=== PATIENT | female | born 1990 | race African-American/Black ===

== ENCOUNTER 2017-07-20 02:03 | Inpatient (IN) ==
[2017-07-20] MEDS: LACTATED RINGERS 1,000 ML IV SCH ×4 (03:20→23:43)
[2017-07-20] MEDS ORDERED: CITRIC ACID/SODIUM CITRATE 30 ML UDCUP PO ONE (04:00)
[2017-07-20] MEDS ORDERED: cefOXitin 2,000 MG in SYRINGE 1 EACH IV ONE (04:00)
[2017-07-20] MEDS ORDERED: FAMOTIDINE 20 MG/2 ML VIAL IV ONE (04:00)
[2017-07-20 04:28] LABS: Basophils % 0.2 % (0.0-0.8); Eosinophils # 0.1 10*3/uL (0.0-0.87); Eosinophils % 0.5 % (0.00-10.9); Hematocrit 27.8 VOL% (35.7-47.0); Hemoglobin 8.3 GM/DL (12.0-16.0); Immature Granulocytes % 0.7 %; Immature Granulocytes Absolute 0.07 #; Lymphocytes % 28.6 % (21.3-54.2); Mean Corpuscular HGB Conc 29.9 GM/DL (32-36); Mean Corpuscular Hemoglobin 23 PG (27-34); Mean Corpuscular Volume 76.8 FL (87-102); Mean Platelet Volume 11.4 FL (9.6-12.0); Monocytes # 0.9 10*3/uL (0.11-0.8); Monocytes % 8.4 % (1.7-12.7); NRBC # 0.02 10*3/uL; Neutrophils # 6.4 10*3/uL (1.4-7.4); Neutrophils % 61.6 % (38.7-73.9); Platelet Count 212 T/CUMM (130-400); Red Blood Count 3.62 MC/CUMM (3.8-5.5); Red Cell Distribution Width 16.1 % (9.3-17.3); White Blood Count 10.4 T/CUMM (4-12)
[2017-07-20] MEDS ORDERED: OXYTOCIN/LR 20 UNIT/1,000 ML BAG IV ONE ×3 (04:34→10:30)
[2017-07-20 04:42] LABS: Apearance,Urine CLEAR (Clear); Bilirubin,Urine Negative (Negative); Blood, Urine Negative (Negative); Glucose,Urine (UA) Negative (Negative); Ketones,Urine Negative (Negative); Nitrite,Urine Negative (Negative); Protein,Urine Negative; RBC,Urine <1 /HPF (0-4); Squamous Epithelial Cell,Urine Occasional /HPF (0-10); Urine Color Straw (Yellow); Urine Specific Gravity 1.003 (1.001-1.035); Urine Urobilinogen < 2.0 EU/DL (0.2-1.0); WBC,Urine <1 /HPF (0-6)
[2017-07-20 05:02] LABS: Apearance,Urine CLEAR (Clear); Bilirubin,Urine Negative (Negative); Blood, Urine Negative (Negative); Glucose,Urine (UA) Negative (Negative); Ketones,Urine Negative (Negative); Nitrite,Urine Negative (Negative); Protein,Urine Negative; Squamous Epithelial Cell,Urine Occasional /HPF (0-10); Urine Color Straw (Yellow); Urine Specific Gravity 1.003 (1.001-1.035); Urine Urobilinogen < 2.0 EU/DL (0.2-1.0)
[2017-07-20 05:29] LABS: Albumin 2.8 G/DL (3.4-5.0); Bilirubin,Total 0.8 MG/DL (0.2-1.0); Calcium 8.6 MG/DL (8.5-10.1); Osmolality,Calculated 274.4 MOS/KG (273-304); Potassium 3.8 MMOL/L (3.5-5.1); Total Protein 6.7 G/DL (6.4-8.3)
[2017-07-20 06:14] LABS: Cord Venous Blood PCO2 41.7 MMHG
[2017-07-20] MEDS ORDERED: NALOXONE 0.4 MG/ML VIAL IV PRN ×2 (06:15→06:43)
[2017-07-20] MEDS ORDERED: MIDAZOLAM 2 MG/2 ML VIAL ONE (06:17)
[2017-07-20] MEDS ORDERED: fentaNYL 100 MCG/2 ML VIAL ONE (06:17)
[2017-07-20] MEDS ORDERED: MORPHINE 10 MG/10 ML VIAL ONE (06:17)
[2017-07-20] MEDS ORDERED: KETAMINE 500 MG/10 ML VIAL ONE (06:18)
[2017-07-20] MEDS ORDERED: PROPOFOL 200 MG/20 ML VIAL IV ONE (06:21)
[2017-07-20] MEDS ORDERED: HYDROmorphone PCA 30 MG/30 ML SYRINGE IV SCH (06:30)
[2017-07-20] MEDS ORDERED: MORPHINE PCA 150 MG/30 ML SYRINGE IV SCH (07:00)
[2017-07-20] MEDS ORDERED: RHO(D) IMMUNE GLOBULIN 300 MCG SYRINGE IM ONE (10:30)
[2017-07-20] MEDS ORDERED: ONDANSETRON 4 MG/2 ML VIAL IV PRN (10:30)
[2017-07-20] MEDS ORDERED: WITCH HAZEL PADS 100/JAR TOP PRN (16:19)
[2017-07-20] MEDS ORDERED: DIBUCAINE 1% OINT 28 GM TUBE TOP PRN (16:20)
[2017-07-20] MEDS ORDERED: ceFAZolin 1,000 MG in SYRINGE 1 EACH IV SCH (23:45)
[2017-07-21] MEDS: IBUPROFEN 800 MG TABLET PO SCH ×3 (02:33→18:09)
[2017-07-21] MEDS ORDERED: IBUPROFEN 800 MG TABLET PO SCH (05:00)
[2017-07-21 05:18] LABS: Basophils % 0.1 % (0.0-0.8); Eosinophils % 0.1 % (0.00-10.9); Hematocrit 22.1 VOL% (35.7-47.0); Hemoglobin 6.5 GM/DL (12.0-16.0); Immature Granulocytes % 0.8 %; Immature Granulocytes Absolute 0.11 #; Lymphocytes # 1.7 10*3/uL (1.4-4.0); Lymphocytes % 12.9 % (21.3-54.2); Mean Corpuscular HGB Conc 29.4 GM/DL (32-36); Mean Corpuscular Hemoglobin 22 PG (27-34); Mean Corpuscular Volume 75.9 FL (87-102); Monocytes % 7.1 % (1.7-12.7); Neutrophils # 10.6 10*3/uL (1.4-7.4); Platelet Count 176 T/CUMM (130-400); Red Blood Count 2.91 MC/CUMM (3.8-5.5); White Blood Count 13.4 T/CUMM (4-12)
[2017-07-21] MEDS: DOCUSATE SODIUM 100 MG CAPSULE PO SCH ×3 (06:55→21:19)
[2017-07-21] MEDS: MULTIVITAMIN (PRENATAL) TABLET PO SCH (10:05)
[2017-07-21] MEDS: MAGNESIUM HYDROXIDE SUSP 30 ML UDCUP PO PRN ×2 (10:05→21:25)
[2017-07-21] MEDS: SIMETHICONE CHEW 80 MG TABLET PO PRN ×2 (10:06→21:19)
[2017-07-21] MEDS: FERROUS SULFATE 325 MG TABLET PO SCH ×2 (10:26→21:19)
[2017-07-21] MEDS ORDERED: HYDROCORTISONE 1% OINT 28.35 GM TUBE TOP PRN (18:29)
[2017-07-21] MEDS ORDERED: SERTRALINE 25 MG TABLET PO SCH (21:00)
[2017-07-22] MEDS: IBUPROFEN 800 MG TABLET PO SCH ×2 (02:48→09:26)
[2017-07-22 05:52] VITALS: BP 111/64
[2017-07-22] MEDS ORDERED: SERTRALINE 25 MG TABLET PO SCH (09:00)
[2017-07-22] MEDS: FERROUS SULFATE 325 MG TABLET PO SCH (09:25)
[2017-07-22] MEDS: DOCUSATE SODIUM 100 MG CAPSULE PO SCH (09:25)
[2017-07-22] MEDS: MULTIVITAMIN (PRENATAL) TABLET PO SCH (09:25)
[2017-07-22] MEDS: MAGNESIUM HYDROXIDE SUSP 30 ML UDCUP PO PRN (09:26)
[2017-07-22] MEDS: SIMETHICONE CHEW 80 MG TABLET PO PRN (09:26)
[2017-07-22] MEDS ORDERED: DIPH/TET/ACEL PERT BOOSTER VACCINE 0.5 ML VIAL IM ONE (13:18)
== END 2017-07-22 13:50 | disposition home or self-care (01) | DRG 540 ==
LOC: N.LDOUT 02:03 → N.LD 02:10 → N.OB 16:04
PROVIDERS: ADMIT Obstetrics & Gynecology; ATTEND Obstetrics & Gynecology
PROC: LDCSECT (ICD-10-PCS; 2017-07-20 05:00)